=== PATIENT | female | born 1935 | race Caucasian/White ===

== ENCOUNTER 2024-08-09 21:24 | Emergency (ER) | payer MEDICARE ==
[~2024-08-09] VITALS: Ht 170.2 cm; Wt 52.2 kg
[2024-08-09] MEDS: ACETAMINOPHEN 500 MG TABLET PO ONE (22:01)
[2024-08-09] MEDS: TDAP DIPH,PERTUSS,TET VAC/PF 0.5 ML DISP.SYRIN IM ONE (22:14)
[2024-08-09] MEDS ORDERED: LIDOCAINE HCL 1% 20 ML VIAL ONE (22:33)
[2024-08-09] MEDS ORDERED: LIDOCAINE HCL 2% 20 ML VIAL ONE (22:53)
[2024-08-09] MEDS ORDERED: CEPH500C2 PO (23:34)
[2024-08-09] MEDS ORDERED: HYDR-4209 PO (23:34)
[2024-08-09] MEDS: LIDOCAINE HCL 2% 20 ML VIAL TP ONE (23:37)
[2024-08-09] MEDS ORDERED: CEphaleXIN 500 MG CAPSULE ONE (23:39)
[2024-08-09] MEDS: CEphaleXIN 500 MG CAPSULE PO ONE (23:44)
[2024-08-09 23:47] VITALS: BP 135/82; TEMP 97.9; O2SAT 99
== END 2024-08-09 23:48 | disposition home or self-care (01) ==
LOC: ER 21:33
DX: S62.637A Displaced fracture of distal phalanx of left little finger, initial encounter for closed fracture (principal); S61.217A Laceration without foreign body of left little finger without damage to nail, initial encounter; W22.09XA Striking against other stationary object, initial encounter; Y93.89 Activity, other specified; Y92.89 Other specified places as the place of occurrence of the external cause; Y99.8 Other external cause status
CPT/HCPCS: 12001; 73140; 90471; 90715; 99283; J3490; A4606; A4663; A9150